=== PATIENT | male | born 1980 | race African-American/Black ===

== ENCOUNTER 2024-06-17 08:43 | Emergency (ER) | payer OTHER ==
[~2024-06-17] VITALS: Ht 182.9 cm; Wt 81.0 kg
[2024-06-17 08:53] VITALS: BP 124/84; PULSE 63; RESP 16; TEMP 98.2; O2SAT 98
[2024-06-17] MEDS ORDERED: IBUP-1492 PO (09:35)
[2024-06-17] MEDS ORDERED: ACET-3385 PO (09:35)
[2024-06-17] MEDS: IBUPROFEN 600 MG TABLET PO ONE (10:06)
[2024-06-17] MEDS: ACETAMINOPHEN 500 MG TABLET PO ONE (10:07)
== END 2024-06-17 10:12 | disposition home or self-care (01) ==
LOC: EMS 08:43
DX: S83.92XA Sprain of unspecified site of left knee, initial encounter (principal); W22.03XA Walked into furniture, initial encounter; Y93.89 Activity, other specified; Y92.89 Other specified places as the place of occurrence of the external cause; Y99.8 Other external cause status
CPT/HCPCS: 99283